=== PATIENT | male | born 1990 | race African-American/Black ===

== ENCOUNTER 2016-11-10 13:40 | Emergency (ER) | payer SELFPAY ==
[~2016-11-10] VITALS: Ht 185.4 cm; Wt 130.0 kg
[~2016-11-10 13:40] MED LIST: COLY4000S PO; DOCU100S PO; Z.0.NO CURRENT MEDS
[2016-11-10 13:41] VITALS: BP 134/84; PULSE 88; RESP 20; TEMP 98; O2SAT 96
[2016-11-10] MEDS ORDERED: POLY10O EACH EYE (14:00)
--- NOTE | 2016-11-10 14:04 | PD ---
HPI Chief Complaint: Eye Problems/Injury Time Seen by Provider: 13:50 Travel History International Travel<30 days: No Contact w/Intl Traveler<30days: No Traveled to known affect area: No History of Present Illness HPI 26-year-old male here for bilateral eye itching, redness, irritation. Symptoms initially started 5 days ago in the left eye. He woke up today with similar symptoms in his right eye. He reports drainage, matting, crusting of the eyelids as well. He does not wear contacts. No sick contacts. He has no other complaints at this time. [facility] Past Medical History Asthma: Yes (IN CHILDHOOD - RESOLVED) Autoimmune Disease: No Diminished Hearing: No Genitourinary: No Musculoskeletal: No Neurologic: No Respiratory: Yes Past Surgical History Neurologic Surgery: No Social History Alcohol Use: No Tobacco Use: Yes (/2 PPD) Substance Use: No Allergies-Medications (Allergen,Severity, Reaction): Coded Allergies: No Known Allergies (Verified , 01/11/10) Reported Meds & Prescriptions Reported Meds & Active Scripts Active Polytrim Opth Drops (Polymyxin/Trimethoprim Sulfate) 10,000-0.1 Unit/Ml-% Soln 1 Drop EACH EYE Q6HR 7 Days Colace (Docusate Sodium) 100 Mg/10 Ml Soln 100 Mg PO BID Golytely (Polyethylene Glycol/Electrolytes) 4,000 Ml Soln 4,000 Ml PO DIRECTED Reported No Current Meds (Miscellaneous Medication) [facility] [place] Review of Systems Eyes: Positive: Drainage, Redness, Tearing, Other (EYE itching) HENT: No: Sore Throat, Rhinitis, Rhinorrhea, Congestion, Nosebleed Respiratory: No: Cough Physical Exam Narrative GENERAL: Well-developed well-nourished male in no acute distress SKIN: Warm and dry. HEAD: Atraumatic. Normocephalic. EYES: Pupils equal and round reactive to light extraocular muscles are intact bilateral conjunctival injection is present without ciliary flush, no proptosis or chemosis. There is no periorbital edema or erythema. No Obvious foreign body. ENT: No nasal bleeding or discharge. Mucous membranes pink and moist. NECK: Trachea midline. No JVD. No lymphadenopathy Data Data Last Documented VS Vital Signs Date Time Temp Pulse Resp B/P Pulse Ox O2 Delivery O2 Flow Rate FiO2 2/16/17 13:41 98.0 88 20 134/84 96 Room Air [facility] Medical Decision Making Medical Screen Exam Complete: Yes Emergency Medical Condition: Yes Medical Record Reviewed: Yes Differential Diagnosis Conjunctivitisviral versus bacterial versus chemical versus other Narrative Course 26-year-old male who initially developed left eye itching and redness and matting and drainage 5 days ago now similar symptoms in the right eye. Examination and history are consistent with bilateral conjunctivitis. The patient will be discharged with Polytrim ophthalmic solution. Diagnosis Primary Impression: Conjunctivitis Qualified Code: H10.33 - Acute conjunctivitis of both eyes, unspecified acute conjunctivitis type Additional Instructions: Medication as prescribed. Wash hands frequently. Wash pillow and pillowcase. Return for any emergent medical conditions. Med/Other Pt SpecificInfo: Prescription(s) given Scripts Polymyxin B-Trimethoprim Opth Drops (Polytrim Opth Drops)10,000-0.1 Unit/Ml-% Soln1 Drop EACH EYE Q6HR 7 Days Ref 0 Prov:Juan J Reyes MD 11/10/16 Disposition: 01 DISCHARGE HOME Condition: Stable Lester Lizama Nov 10, 2016 14:04
== END 2016-11-10 14:22 | disposition home or self-care (01) ==
LOC: NEPB 13:40
DX: H10.33 Unspecified acute conjunctivitis, bilateral (principal); F17.200 Nicotine dependence, unspecified, uncomplicated; Z87.09 Personal history of other diseases of the respiratory system
CPT/HCPCS: 99282